=== PATIENT | male | born 1945 | race Caucasian/White ===

== ENCOUNTER 2024-01-08 13:36 | Emergency (ER) | payer MEDICARE, OTHER, SELFPAY ==
[2024-01-08 13:47] VITALS: BP 180/119
[2024-01-08 14:21] LABS: % Basophils 0.5 % (0-2); % Eosinophils 0.9 % (0-6); % Immature Granulocytes 0.3 % (0-0.5); % Lymphocytes 10.3 % (20.5-51.1); % Monocytes 8.6 % (1.7-9.3); % Neutrophils 79.4 % (42.2-75.2); Absolute Basophils 0.1 10^3/uL (0-0.2); Absolute Eosinophils 0.1 10^3/uL (0-0.7); Absolute Lymphocytes 1.2 10^3/uL (1.2-3.4); Absolute Neutrophils 9.3 10^3/uL (1.4-6.5); Hematocrit 42.5 % (39.0-52.0); Hemoglobin 14.9 g/dL (13.0-18.0); Mean Corp Hgb Conc. 35.1 g/dL (33.0-37.0); Mean Corpuscular Hgb 31.9 pg (27.0-31.0); Mean Platelet Volume 10.1 fL (7.4-10.4); Nucleated Red Blood Cells % 0 % (-); Platelet Count 253 10^3/uL (130-400); Red Blood Cell Count 4.67 10^6/uL (4.70-6.10); Red Cell Dist. Width 12.7 % (11.5-14.5); White Blood Cell Count 11.7 10^3/uL (4.8-10.8)
[2024-01-08 14:56] LABS: ALT (SGPT) 15 U/L (0-50); AST (SGOT) 23 U/L (17-59); Albumin 4.5 g/dl (3.5-5.0); Alkaline Phosphatase 96 U/L (38-126); Blood Urea Nitrogen 18 mg/dl (9-20); Calcium 9.2 mg/dl (8.4-10.2); Carbon Dioxide 21 mmol/L (22-30); Chloride 109 mmol/L (98-107); Glucose 168 mg/dl (70-99); Potassium 4.2 mmol/L (3.5-5.1); Sodium 137 mmol/L (135-145); Total Bilirubin 0.5 mg/dl (0.2-1.3); Total Protein 7.6 g/dl (6.3-8.2); eGFR > 60.00
--- NOTE | 2024-01-08 17:08 | ED.GENMED ---
History of Present Illness
General
Chief Complaint: Back Pain
Time Seen by Provider: 01/08/24 17:08
Travel History
Have you had any contact with someone who has COVID-19?: No
Do you have any symptoms of coronavirus? Fever > 100 degrees, chills, cough, shortness of breath, sore throat, loss of taste or smell, muscle aches, or headache?: No
History of Present Illness
History of Present Illness:
HPI: Patient presents with several weeks of back pain. 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 His pain is primarily localized to the left low back/sacral region. He has no neurologic dysfunction. He has been voiding without difficulty. He has
a history of esophageal cancer 'that is been cleared up' in 2020.
EXAM:
GENERAL: Well appearing in no distress
HEENT: Slightly dry oral mucosa with poor dentition
CARDIOVASCULAR: No murmurs, normal heart rate and rhythm, No chest wall tenderness
PULMONARY: No respiratory distress, breath sounds are clear and equal
ABDOMEN: Soft with no peritoneal signs, no tenderness
BACK: There is some mild tenderness in the left lumbar region, there is no significant midline T or L-spine tenderness
NEUROLOGIC: Excellent strength all extremities, no coordination deficits
PSYCHIATRIC: Appropriate mental status, normal insight and judgement
EXTREMITIES: Nontender, no edema, moves all extremities equally
SKIN: No rash, no lesions
ED COURSE:
5:15 PM: I initially evaluated patient
NUMBER AND COMPLEXITY OF PROBLEMS ADDRESSED AT THE ENCOUNTER
� Chronic conditions affecting care: Esophageal cancer, high blood pressure, hyperlipidemia, has had kidney stones in the past
� Acute Exacerbation and/or Progression of Chronic Illness: This is an acute problem
� Differential Diagnosis includes: Sciatica, musculoskeletal low back pain, AAA very unlikely, metastatic disease, pyelonephritis
AMOUNT AND/OR COMPLEXITY OF DATA TO BE REVIEWED AND ANALYZED
� I performed an independent evaluation of and my interpretation is:
EKG: Sinus 124, left axis deviation, nonspecific ST abnormality
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
X-rays:
Laboratory Studies: White count is slightly high at 11.7, hemoglobin normal, bicarb slightly low at 21, renal function normal, 1+ ketones with no sign of infection
Other:
� Review of other/old records: Patient had upper EUS earlier this year
� Clinical information was obtained by an independent historian:
� Prescriptions/Medications Considered but not given:
� Further testing considered but not performed:
RISK OF COMPLICATIONS AND/OR MORBIDITY OR MORTALITY OF PATIENT MANAGEMENT
� Social determinants of health affecting care: Lives at home
� Discussion with other providers: Discussed with radiologist
� Escalation of care including admission/observation vs risk of discharge considered: Given patient's age along with history of cancer will obtain CT. The patient was given Tylenol and overall appears fairly comfortable.
Past History
Past History
ED Past Medical History: HTN and Hypercholesterolemia
ED Past Surgical History: Other (Hernia repair)
Social History
Tobacco: Non-smoker
Alcohol: None
Personal:
Living: with family
Family History
Family History: Unable to obtain
Phy Exam
Physical Exam
Physical Exam:
See HPI
Course
Orders/Labs/Results
Orders:
Orders
01/08/24 13:49
Electrocardiogram (*1) Urgent
Reason for Study: Bradycardia / Tachycardia
01/08/24 13:50
EKG- Treatment ONCE
01/08/24 13:59
Complete Blood Count/With Diff Urgent
Comprehensive Metabolic Panel Urgent
01/08/24 17:13
CT Abd/pel Without Iv Or Oral Urgent
Comment:
Reason For Exam: worsening L flank pain
CT Lumbar Spine W/o Iv Contras Urgent
Comment:
Reason For Exam: low back pain h/o esophageal cancer
Acetaminophen [Tylenol] 1,000 mg PO NOW STA
01/08/24 17:22
Urinalysis Reflex To Culture Urgent
Date Specimen was Collected: 01/08/24
Time Specimen was Collected: 17:16
Abnormal Lab Results
01/08/24 01/08/24
13:59 17:22
WBC 11.7 H 10^3/uL
(4.8-10.8)
RBC 4.67 L 10^6/uL
(4.70-6.10)
MCH 31.9 H pg
(27.0-31.0)
Absolute Neuts (auto) 9.3 H 10^3/uL
(1.4-6.5)
Absolute Monos (auto) 1.0 H 10^3/uL
(0.1-0.6)
Neutrophils % 79.4 H %
(42.2-75.2)
Lymphocytes % 10.3 L %
(20.5-51.1)
Chloride 109 H mmol/L
(98-107)
Carbon Dioxide 21 L mmol/L
(22-30)
Glucose 168 H mg/dl
(70-99)
Urine Ketones 1+ A
(Negative)
01/08/24 13:59
01/08/24 13:59
Vital Signs
Initial and Last Documented VS:
Initial Vital Signs
Temp Pulse Resp BP Pulse Ox
98 F 129 16 180/119 98
01/08/24 13:47 01/08/24 13:47 01/08/24 13:47 01/08/24 13:47 01/08/24 13:47
Last Documented Vital Signs
Temp Pulse Resp BP Pulse Ox
98 F 96 19 162/97 95
01/08/24 13:47 01/08/24 17:49 01/08/24 17:49 01/08/24 17:57 01/08/24 17:49
*Critical Care Note
Total Time (30-74mins, 75-104mins- exclusive of procedures): Not Applicable
ED Attending Note
-
Portions of this chart may have been created with voice recognition software.� Occasional wrong word or��sound alike� substitutions may have occurred due to the inherent limitations of voice recognition software.
Discharge Plan
Departure
Patient Disposition: Home (Routine Discharge)
Date of Disposition: 01/08/24
Time of Disposition: 18:23
Patient with high blood pressure during this ER visit?: Yes
Discharge Problem:
Low back pain
Instructions: Low Back Pain (DC)
Prescriptions:
No Action
omeprazole [Prilosec] 20 mg Capsule,Delayed Release(Dr/Ec)
20 mg PO DAILY
Referrals:
Taco Jacobo MD [Family Provider] -
Activity Restrictions/Additional Instructions:
The cause of your back pain is unclear but CT imaging is reassuring meaning no sign of metastatic disease or broken bones. Chronic degenerative disease is noted of the low back. Tylenol is safest for pain.
Interventions
Interventions:
*Risk Screen - Suicide Last Done: 01/08/24 16:39
*Neglect/Abuse Screening Last Done: 01/08/24 16:39
ED- Fall Risk Assessment Last Done: 01/08/24 16:39
*ED COVID-19 Vaccine History Last Done: 01/08/24 13:47
*Nursing Disposition Last Done: 01/08/24 18:30
ED-Musculoskeletal Assessment Last Done: 01/08/24 16:39
Discharge Date and Time
Discharge Date/Time: 01/08/24 18:40
[2024-01-08] MEDS: TYLENOL 1000 MG PO (17:19)
[2024-01-08 17:34] LABS: Urine Albumin Trace (Neg - Trace); Urine Bilirubin Negative (Negative); Urine Character Clear (Clear); Urine Color Yellow; Urine Glucose Negative (Negative); Urine Ketone 1+ (Negative); Urine Leukocyte Negative (Negative); Urine Nitrite Negative (Negative); Urine Occult Blood Negative (Negative); Urine Urobilinogen Negative (Neg - 1+)
[2024-01-08 17:49] VITALS: BP 177/104
[2024-01-08 17:57] VITALS: BP 162/97
== END 2024-01-08 18:40 | disposition home or self-care (01) ==
LOC: EMR 13:36
PROVIDERS: Emergency Medicine; EMERGENCY PHYSICIAN Emergency Medicine; FAMILY PHYSICIAN Family Medicine
DX: M54.50 Low back pain, unspecified (principal); R10.9 Unspecified abdominal pain; I10 Essential (primary) hypertension; E78.00 Pure hypercholesterolemia, unspecified; Z85.01 Personal history of malignant neoplasm of esophagus; Z88.8 Allergy status to other drugs, medicaments and biological substances; Z87.442 Personal history of urinary calculi
CPT/HCPCS: 99284; 72131; 74176; 80053; 81003; 85025; 93005

== ENCOUNTER → 2024-02-03 07:03 | Outpatient (REF) | payer MEDICARE, OTHER, SELFPAY ==
[2024-02-03 07:53] LABS: % Basophils 0.6 % (0-2); % Eosinophils 3.3 % (0-6); % Immature Granulocytes 0.4 % (0-0.5); % Lymphocytes 11.2 % (20.5-51.1); % Monocytes 11.4 % (1.7-9.3); % Neutrophils 73.1 % (42.2-75.2); Absolute Basophils 0.1 10^3/uL (0-0.2); Absolute Eosinophils 0.3 10^3/uL (0-0.7); Absolute Neutrophils 6.6 10^3/uL (1.4-6.5); Hematocrit 40.6 % (39.0-52.0); Hemoglobin 13.5 g/dL (13.0-18.0); Mean Corp Hgb Conc. 33.3 g/dL (33.0-37.0); Mean Corpuscular Hgb 31.2 pg (27.0-31.0); Mean Corpuscular Volume 93.8 fL (80.0-94.0); Mean Platelet Volume 9.8 fL (7.4-10.4); Nucleated Red Blood Cells % 0 % (-); Platelet Count 227 10^3/uL (130-400); Red Blood Cell Count 4.33 10^6/uL (4.70-6.10)
[2024-02-03 08:34] LABS: ALT (SGPT) 14 U/L (0-50); AST (SGOT) 26 U/L (17-59); Albumin 4.2 g/dl (3.5-5.0); Alkaline Phosphatase 63 U/L (38-126); Blood Urea Nitrogen 19 mg/dl (9-20); Calcium 9.3 mg/dl (8.4-10.2); Carbon Dioxide 24 mmol/L (22-30); Chloride 107 mmol/L (98-107); Glucose 117 mg/dl (70-99); HDL Cholesterol 61 mg/dl; LDL Cholesterol, Calculated 108 mg/dl; Potassium 4.6 mmol/L (3.5-5.1); Sodium 135 mmol/L (135-145); Total Bilirubin 1.1 mg/dl (0.2-1.3); Total Cholesterol 187 mg/dl (50-199); Total Protein 7.2 g/dl (6.3-8.2); Triglyceride 90 mg/dl (10-149); Very Low Density Lipoprotein 18 mg/dl (0-30); eGFR > 60.00
== END ==
LOC: REG 07:03
PROVIDERS: ATTENDING PHYSICIAN Internal Medicine Hematology & Oncology; FAMILY PHYSICIAN Family Medicine
DX: I10 Essential (primary) hypertension (principal); R00.0 Tachycardia, unspecified; C15.5 Malignant neoplasm of lower third of esophagus; Z00.00 Encounter for general adult medical examination without abnormal findings
CPT/HCPCS: 36415; 80053; 80061; 85025

== ENCOUNTER 2024-03-14 06:12 | Day surgery (SDC) | payer MEDICARE, OTHER, SELFPAY ==
[2024-03-14 12:27] VITALS: BMI 26.5
[2024-03-14 12:28] VITALS: BMI 26.5
[2024-03-14 12:37] VITALS: BP 147/97
--- NOTE | 2024-03-14 12:46 | SUR.OPER ---
Patients HR was 102 and BP 147/97. Dr. Underwood notified. No further orders.
[2024-03-14 14:30] VITALS: BP 118/82
[2024-03-14 14:45] VITALS: BP 131/85
[2024-03-14 15:00] VITALS: BP 102/79
== END 2024-03-14 15:18 | disposition home or self-care (01) ==
LOC: GI 06:12
PROVIDERS: ATTENDING PHYSICIAN Internal Medicine Gastroenterology
DX: K22.10 Ulcer of esophagus without bleeding (principal); K22.2 Esophageal obstruction; K22.89 Other specified disease of esophagus; K86.9 Disease of pancreas, unspecified; Z85.01 Personal history of malignant neoplasm of esophagus; Z92.3 Personal history of irradiation; Z92.21 Personal history of antineoplastic chemotherapy
CPT/HCPCS: 43259; 43239; 88305; 88312; 88342

== ENCOUNTER → 2024-08-03 07:34 | Outpatient (REF) | payer MEDICARE, OTHER, SELFPAY ==
[2024-08-03 08:14] LABS: % Basophils 0.7 % (0-2); % Eosinophils 3.4 % (0-6); % Immature Granulocytes 0.4 % (0-0.5); % Lymphocytes 15.5 % (20.5-51.1); Absolute Basophils 0.1 10^3/uL (0-0.2); Absolute Eosinophils 0.3 10^3/uL (0-0.7); Absolute Lymphocytes 1.2 10^3/uL (1.2-3.4); Absolute Monocytes 0.8 10^3/uL (0.1-0.6); Absolute Neutrophils 5.2 10^3/uL (1.4-6.5); Hematocrit 40.7 % (39.0-52.0); Hemoglobin 13.9 g/dL (13.0-18.0); Mean Corp Hgb Conc. 34.2 g/dL (33.0-37.0); Mean Corpuscular Volume 93.6 fL (80.0-94.0); Mean Platelet Volume 9.9 fL (7.4-10.4); Nucleated Red Blood Cells % 0 % (-); Platelet Count 227 10^3/uL (130-400); Red Blood Cell Count 4.35 10^6/uL (4.70-6.10); Red Cell Dist. Width 12.8 % (11.5-14.5); White Blood Cell Count 7.5 10^3/uL (4.8-10.8)
[2024-08-03 08:42] LABS: ALT (SGPT) 13 U/L (0-50); AST (SGOT) 19 U/L (17-59); Albumin 4.4 g/dl (3.5-5.0); Alkaline Phosphatase 73 U/L (38-126); Blood Urea Nitrogen 15 mg/dl (9-20); Calcium 9.5 mg/dl (8.4-10.2); Carbon Dioxide 25 mmol/L (22-30); Chloride 104 mmol/L (98-107); Glucose 134 mg/dl (70-99); Potassium 4.4 mmol/L (3.5-5.1); Sodium 140 mmol/L (135-145); Total Bilirubin 1.1 mg/dl (0.2-1.3); eGFR > 60.00
== END ==
LOC: REG 07:34
PROVIDERS: ATTENDING PHYSICIAN Internal Medicine Hematology & Oncology; FAMILY PHYSICIAN Family Medicine
DX: C15.5 Malignant neoplasm of lower third of esophagus (principal)
CPT/HCPCS: 36415; 80053; 85025

== ENCOUNTER → 2024-08-12 13:30 | Outpatient (REF) | payer MEDICARE, OTHER, SELFPAY | LOC: RAD 13:30 | PROVIDERS: ATTENDING PHYSICIAN Internal Medicine Hematology & Oncology; FAMILY PHYSICIAN Family Medicine | DX: C15.5 Malignant neoplasm of lower third of esophagus (principal) | CPT/HCPCS: 71260; 74177; Q9967 ==

== ENCOUNTER 2024-08-12 14:12 | Emergency (ER) | payer MEDICARE, OTHER, SELFPAY ==
[2024-08-12 14:22] VITALS: BP 190/102
[2024-08-12 14:55] LABS: % Basophils 0.6 % (0-2); % Eosinophils 2.6 % (0-6); % Immature Granulocytes 0.3 % (0-0.5); % Lymphocytes 12.2 % (20.5-51.1); % Monocytes 8.4 % (1.7-9.3); % Neutrophils 75.9 % (42.2-75.2); Absolute Basophils 0.1 10^3/uL (0-0.2); Absolute Eosinophils 0.3 10^3/uL (0-0.7); Absolute Lymphocytes 1.2 10^3/uL (1.2-3.4); Absolute Monocytes 0.8 10^3/uL (0.1-0.6); Absolute Neutrophils 7.5 10^3/uL (1.4-6.5); Hematocrit 38.7 % (39.0-52.0); Hemoglobin 13.3 g/dL (13.0-18.0); Mean Corp Hgb Conc. 34.4 g/dL (33.0-37.0); Mean Corpuscular Hgb 31.1 pg (27.0-31.0); Mean Corpuscular Volume 90.4 fL (80.0-94.0); Mean Platelet Volume 9.8 fL (7.4-10.4); Nucleated Red Blood Cells % 0 % (-); Platelet Count 259 10^3/uL (130-400); Red Blood Cell Count 4.28 10^6/uL (4.70-6.10); White Blood Cell Count 9.9 10^3/uL (4.8-10.8)
[2024-08-12 15:12] LABS: ALT (SGPT) 13 U/L (0-50); AST (SGOT) 19 U/L (17-59); Albumin 4.5 g/dl (3.5-5.0); Alkaline Phosphatase 82 U/L (38-126); Blood Urea Nitrogen 16 mg/dl (9-20); Calcium 9.4 mg/dl (8.4-10.2); Carbon Dioxide 23 mmol/L (22-30); Chloride 102 mmol/L (98-107); Glucose 116 mg/dl (70-99); Potassium 4.3 mmol/L (3.5-5.1); Sodium 138 mmol/L (135-145); Total Bilirubin 0.6 mg/dl (0.2-1.3); Total Protein 7.2 g/dl (6.3-8.2); eGFR > 60.00
[2024-08-12 15:21] LABS: Troponin I < 0.012 ng/ml
[2024-08-12 18:25] VITALS: BP 168/94
[2024-08-12 19:26] VITALS: BP 181/84
[2024-08-12 19:34] VITALS: BMI 27.0
--- NOTE | 2024-08-12 19:53 | ED.GENMED ---
History of Present Illness
General
Chief Complaint: Dizziness
Time Seen by Provider: 08/12/24 19:52
History of Present Illness
History of Present Illness:
TIME OF INITIAL ENCOUNTER: 7:50 PM
HPI: The patient presents with lightheadedness and dizziness over the past 7 days. He feels well-hydrated and has been drinking fluids without any difficulty. He has had no diarrhea. He has had no chest pain. He states that his symptoms of
dizziness worsen when he changes position of his head. He has had no headaches.
EXAM:
GENERAL: Well appearing in no distress
HEENT: Poor dentition
CARDIOVASCULAR: No murmurs, normal heart rate, regular rhythm, No chest wall tenderness
PULMONARY: No respiratory distress, breath sounds are clear and equal
ABDOMEN: Soft with no peritoneal signs, no tenderness
NEUROLOGIC: Excellent strength all extremities, no coordination deficits, normal finger-nose bilaterally
PSYCHIATRIC: Appropriate mental status, normal insight and judgement
EXTREMITIES: Nontender, no edema, moves all extremities equally
SKIN: No rash, no lesions
NUMBER AND COMPLEXITY OF PROBLEMS ADDRESSED AT THE ENCOUNTER
� Chronic conditions affecting care: High blood pressure, hyperlipidemia, skin cancer
� Acute Exacerbation and/or Progression of Chronic Illness: This is an acute problem
� Differential Diagnosis includes: Positional vertigo, highly doubt intracranial process given the normal neurologic examination and overall near resolution of his symptoms currently
AMOUNT AND/OR COMPLEXITY OF DATA TO BE REVIEWED AND ANALYZED
� I performed an independent evaluation of and my interpretation is:
EKG: Sinus 75, left axis deviation, downgoing T waves in 3 and F however the QRSs are also downgoing
CT:
X-rays:
Laboratory Studies: White count and hemoglobin normal, chemistries unremarkable, troponin undetected,
Other:
� Review of other/old records: Patient had EUS this past February, I reviewed the CT report that was performed earlier today of the chest abdomen pelvis
� Clinical information was obtained by an independent historian: I spoke to the at bedside
� Prescriptions/Medications Considered but not given:
� Further testing considered but not performed: Offered and considered neuroimaging however the patient ultimately has declined. He has a normal neurologic exam.
RISK OF COMPLICATIONS AND/OR MORBIDITY OR MORTALITY OF PATIENT MANAGEMENT
� Social determinants of health affecting care: Lives at home
� Discussion with other providers:
� Escalation of care including admission/observation vs risk of discharge considered: We talked about the risks and benefits of meclizine. He wishes to proceed with trying this medication we are giving him a one-time dose now
that he can continue tomorrow if he feels that it helps. No clear indication for admission to the hospital at this time as his symptoms are minimal and he has a normal neurologic examination with normal EKG and neurologic evaluation.
ANY OTHER UPDATES:
Past History
Past History
ED Past Medical History: HTN and Hypercholesterolemia
ED Past Surgical History: Other (Hernia repair)
Social History
Tobacco: Non-smoker
Alcohol: None
Personal:
Living: with family
Family History
Family History: Unable to obtain
Phy Exam
Physical Exam
Physical Exam:
See HPI
Course
Orders/Labs/Results
Orders:
Orders
08/12/24 14:12
Electrocardiogram (*1) Urgent
Reason for Study: Vertigo / Dizzy
EKG- Treatment ONCE
08/12/24 14:30
Complete Blood Count/With Diff Urgent
Comprehensive Metabolic Panel Urgent
Troponin I Urgent
08/12/24 20:18
Meclizine [Antivert] 12.5 mg PO NOW STA
Abnormal Lab Results
08/12/24
14:30
RBC 4.28 L 10^6/uL
(4.70-6.10)
Hct 38.7 L %
(39.0-52.0)
MCH 31.1 H pg
(27.0-31.0)
Absolute Neuts (auto) 7.5 H 10^3/uL
(1.4-6.5)
Absolute Monos (auto) 0.8 H 10^3/uL
(0.1-0.6)
Neutrophils % 75.9 H %
(42.2-75.2)
Lymphocytes % 12.2 L %
(20.5-51.1)
Glucose 116 H mg/dl
(70-99)
08/12/24 14:30
08/12/24 14:30
Vital Signs
Initial and Last Documented VS:
Initial Vital Signs
Temp Pulse Resp BP Pulse Ox
98.1 F 78 18 190/102 97
08/12/24 14:22 08/12/24 14:22 08/12/24 14:22 08/12/24 14:22 08/12/24 14:22
Last Documented Vital Signs
Temp Pulse Resp BP Pulse Ox
98.8 F 69 15 181/84 98
08/12/24 19:37 08/12/24 19:30 08/12/24 19:30 08/12/24 19:26 08/12/24 19:30
*Critical Care Note
Total Time (30-74mins, 75-104mins- exclusive of procedures): Not Applicable
ED Attending Note
-
Portions of this chart may have been created with voice recognition software.� Occasional wrong word or��sound alike� substitutions may have occurred due to the inherent limitations of voice recognition software.
Discharge Plan
Departure
Patient Disposition: Home (Routine Discharge)
Date of Disposition: 08/12/24
Time of Disposition: 20:18
Patient with high blood pressure during this ER visit?: Yes
Discharge Problem:
Dizziness
Instructions: Dizziness
Prescriptions:
New
meclizine 12.5 mg tablet
12.5 mg PO BID PRN (Reason: dizziness) Qty: 20 0RF
No Action
atenolol 50 mg Tablet
50 mg PO DAILY
Referrals:
Taco Jacobo MD [Family Provider] -
Activity Restrictions/Additional Instructions:
We have given you a dose of meclizine here�this was a low dose. If you tolerate this medication, you can start the prescription meclizine that I am sending to your pharmacy.
Interventions
Interventions:
*Risk Screen - Suicide Last Done: 08/12/24 14:22
*General Assessment Last Done: 08/12/24 14:22
*Neglect/Abuse Screening Last Done: 08/12/24 14:22
ED- Fall Risk Assessment Last Done: 08/12/24 19:34
*ED COVID-19 Vaccine History Last Done: 08/12/24 14:22
ED- Neurological Assessment Last Done: 08/12/24 19:34
ED- Cardiac Assessment Last Done: 08/12/24 19:34
Discharge Date and Time
Print Language: GRENADIAN
[2024-08-12 20:00] VITALS: BP 135/79
[2024-08-12] MEDS: ANTIVERT 12.5 MG PO (20:43)
== END 2024-08-12 20:55 | disposition home or self-care (01) ==
LOC: EMR 14:12
PROVIDERS: Physician Assistant; EMERGENCY PHYSICIAN Emergency Medicine; FAMILY PHYSICIAN Family Medicine
DX: R42 Dizziness and giddiness (principal); I10 Essential (primary) hypertension
CPT/HCPCS: 99284; 71260; 74177; 80053; 84484; 85025; 93005; Q9967

== ENCOUNTER 2024-08-20 08:57 | Emergency (ER) | payer MEDICARE, OTHER, SELFPAY ==
[2024-08-20 09:02] VITALS: BP 163/84
[2024-08-20 09:05] VITALS: BMI 22.4
--- NOTE | 2024-08-20 09:06 | ED.MUSCINJ ---
HPI-Injury
General
Chief Complaint: Fall
Source: patient
Exam Limitations: none
Time Seen by Provider: 08/20/24 08:59
History of Present Illness-Injury
Initial Injury comments:
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 He hit his head. He thinks he may have lost consciousness after hitting his head. Right
now he feels just lightheaded. No chest pain or shortness of breath. He denies neck arm or back pain. No nausea or vomiting. No other complaints. He denies any dizzy sensation. He denies any vision change
Past History
Past History
ED Past Medical History: HTN and Hypercholesterolemia
ED Past Surgical History: Other (Hernia repair)
Social History
Tobacco: Non-smoker
Alcohol: None
Personal:
Living: with family
Family History
Family History: Unable to obtain
Phy Exam
Physical Exam
Physical Exam:
General: Well-appearing male no acute respiratory distress
HEENT: Normocephalic send total of a 6 cm Y shaped laceration left posterior scalp pupils equal round react to light
Heart: Regular rate and rhythm
Lungs: Clear no wheeze
Extremities: No cyanosis
Musculoskeletal exam: Spine is nontender good range of motion all extremities
Neurologic: Alert and oriented good muscle tone no facial asymmetry or slurred speech
Injury Course
Orders/Labs/Results
Orders:
Orders
08/20/24 09:03
CT Cervical Spine W/o Iv Contr Urgent
Comment:
Reason For Exam: fall
08/20/24 09:04
Electrocardiogram (*1) Urgent
Reason for Study: Palpitations
CT Head W/o Iv Contrast Urgent
Comment:
Reason For Exam: fall
EKG- Treatment ONCE
08/20/24 09:10
Complete Blood Count/With Diff Urgent
Comprehensive Metabolic Panel Urgent
08/20/24 09:51
Orthostatic VS- Treatment ONCE
Abnormal Lab Results
08/20/24
09:10
RBC 4.28 L 10^6/uL
(4.70-6.10)
MCH 32.0 H pg
(27.0-31.0)
Absolute Neuts (auto) 7.3 H 10^3/uL
(1.4-6.5)
Absolute Lymphs (auto) 1.0 L 10^3/uL
(1.2-3.4)
Absolute Monos (auto) 0.8 H 10^3/uL
(0.1-0.6)
Neutrophils % 77.0 H %
(42.2-75.2)
Lymphocytes % 10.2 L %
(20.5-51.1)
Glucose 134 H mg/dl
(70-99)
08/20/24 09:10
08/20/24 09:10
Procedures
Laceration Closure
Left Posterior Scalp:
Status of Wound: clean
Description of Wound Edges: sharp
Preparation: cleaned with saline
Anesthesia: 1% Lidocaine with epi
Revision/Debridement: routine- no revision
Wound exploration: explored to base- no FB and no tendon involvement
Type of Closure: single layer closure and running stitch
Skin Closure Material: 4-0 prolene
Number of sutures: 10
MDM/Problems Addressed
Differential Diagnosis Includes:
Lightheadedness with a fall. Consider orthostasis versus arrhythmia versus anemia. Patient also hit his head with laceration. Consider skull fracture intracranial bleed or cervical spine injury. CT of head and cervical spine pending. Patient
placed on monitor EKG pending labs pending. Patient's wound will require closure
*Critical Care Note
Total Time (30-74mins, 75-104mins- exclusive of procedures): Not Applicable
Update Note
Update Note:
CT of head and cervical spine were reviewed by myself and radiologist both of which are negative for acute traumatic injury. The wound was irrigated copiously and closed with 4-0 Prolene sutures. Orthostatic vital signs are stable. Patient has
been on his feet without any signs of unsteadiness. I think he stable for discharge with close follow-up with family doctor. Sutures to be removed in 7 to 10 days
ED Attending Note
-
Portions of this chart may have been created with voice recognition software.� Occasional wrong word or��sound alike� substitutions may have occurred due to the inherent limitations of voice recognition software.
Discharge Plan
Departure
Patient Disposition: Home (Routine Discharge)
Date of Disposition: 08/20/24
Time of Disposition: 10:46
Patient with high blood pressure during this ER visit?: No
Discharge Problem:
Fall, Laceration
Instructions: Laceration Repair With Stitches (DC)
Prescriptions:
No Action
atenolol 50 mg Tablet
50 mg PO DAILY
meclizine 12.5 mg tablet
12.5 mg PO BID PRN (Reason: dizziness) Qty: 20 0RF
Referrals:
Taco Jacobo MD [Family Provider] -
Activity Restrictions/Additional Instructions:
Please stay hydrated. Have sutures removed in 7 to 10 days. You may ice to the sore spot. Take Tylenol if needed for pain. Follow-up with your family doctor return here if worse otherwise.
Interventions
Interventions:
*Risk Screen - Suicide Last Done: 08/20/24 09:06
*General Assessment Last Done: 08/20/24 09:06
*Neglect/Abuse Screening Last Done: 08/20/24 09:06
*ED COVID-19 Vaccine History Last Done: 08/20/24 09:06
ED-Musculoskeletal Assessment Last Done: 08/20/24 09:06
ED- Neurological Assessment Last Done: 08/20/24 09:06
ED-Skin Assessment Last Done: 08/20/24 09:06
Discharge Date and Time
Print Language: MALTESE
[2024-08-20 09:26] LABS: % Basophils 0.5 % (0-2); % Eosinophils 3.2 % (0-6); % Immature Granulocytes 0.3 % (0-0.5); % Lymphocytes 10.2 % (20.5-51.1); % Monocytes 8.8 % (1.7-9.3); Absolute Basophils 0.1 10^3/uL (0-0.2); Absolute Eosinophils 0.3 10^3/uL (0-0.7); Absolute Monocytes 0.8 10^3/uL (0.1-0.6); Absolute Neutrophils 7.3 10^3/uL (1.4-6.5); Hematocrit 40.1 % (39.0-52.0); Hemoglobin 13.7 g/dL (13.0-18.0); Mean Corp Hgb Conc. 34.2 g/dL (33.0-37.0); Mean Corpuscular Volume 93.7 fL (80.0-94.0); Mean Platelet Volume 9.8 fL (7.4-10.4); Nucleated Red Blood Cells % 0 % (-); Platelet Count 255 10^3/uL (130-400); Red Blood Cell Count 4.28 10^6/uL (4.70-6.10); Red Cell Dist. Width 12.7 % (11.5-14.5); White Blood Cell Count 9.5 10^3/uL (4.8-10.8)
[2024-08-20 09:31] LABS: ALT (SGPT) 15 U/L (0-50); AST (SGOT) 20 U/L (17-59); Albumin 4.4 g/dl (3.5-5.0); Alkaline Phosphatase 75 U/L (38-126); Blood Urea Nitrogen 18 mg/dl (9-20); Calcium 9.6 mg/dl (8.4-10.2); Carbon Dioxide 25 mmol/L (22-30); Chloride 103 mmol/L (98-107); Estimated Creatinine Clearance 59 ml/min; Glucose 134 mg/dl (70-99); Potassium 4.6 mmol/L (3.5-5.1); Sodium 139 mmol/L (135-145); Total Bilirubin 0.6 mg/dl (0.2-1.3); Total Protein 7.2 g/dl (6.3-8.2); eGFR > 60.00
[2024-08-20 09:51] VITALS: BP 144/89; BP 151/87; BP 171/93; PULSE 75; PULSE 76; PULSE 80
== END 2024-08-20 13:32 | disposition home or self-care (01) ==
LOC: EMR 08:57
PROVIDERS: Physician Assistant; EMERGENCY PHYSICIAN Emergency Medicine; FAMILY PHYSICIAN Family Medicine
DX: S01.01XA Laceration without foreign body of scalp, initial encounter (principal); W19.XXXA Unspecified fall, initial encounter; R42 Dizziness and giddiness; I10 Essential (primary) hypertension; E78.00 Pure hypercholesterolemia, unspecified
CPT/HCPCS: 99284; 12001; 70450; 72125; 80053; 85025; 93005

== ENCOUNTER 2024-08-27 21:49 | Inpatient (IN) | payer MEDICARE, OTHER, SELFPAY ==
[2024-08-27 19:23] VITALS: BP 183/65
[2024-08-27 19:43] VITALS: BMI 27.5
[2024-08-27 19:45] VITALS: BP 160/85
[2024-08-27 19:47] LABS: % Basophils 0.5 % (0-2); % Eosinophils 3.1 % (0-6); % Immature Granulocytes 0.4 % (0-0.5); % Lymphocytes 12.9 % (20.5-51.1); % Monocytes 9.1 % (1.7-9.3); Absolute Basophils 0.1 10^3/uL (0-0.2); Absolute Eosinophils 0.3 10^3/uL (0-0.7); Absolute Lymphocytes 1.2 10^3/uL (1.2-3.4); Absolute Monocytes 0.9 10^3/uL (0.1-0.6); Hematocrit 39.2 % (39.0-52.0); Hemoglobin 13.3 g/dL (13.0-18.0); Mean Corp Hgb Conc. 33.9 g/dL (33.0-37.0); Mean Corpuscular Hgb 31.9 pg (27.0-31.0); Mean Platelet Volume 9.5 fL (7.4-10.4); Nucleated Red Blood Cells % 0 % (-); Platelet Count 236 10^3/uL (130-400); Red Blood Cell Count 4.17 10^6/uL (4.70-6.10); Red Cell Dist. Width 12.6 % (11.5-14.5); White Blood Cell Count 9.5 10^3/uL (4.8-10.8)
[2024-08-27] MEDS: ATROPINE 0.1 MG/ML SYRINGE 1 MG IV (19:59)
[2024-08-27 20:00] VITALS: BP 151/80
[2024-08-27 20:05] LABS: ALT (SGPT) 14 U/L (0-50); AST (SGOT) 18 U/L (17-59); Albumin 4.2 g/dl (3.5-5.0); Alkaline Phosphatase 75 U/L (38-126); Blood Urea Nitrogen 18 mg/dl (9-20); Calcium 9.3 mg/dl (8.4-10.2); Carbon Dioxide 26 mmol/L (22-30); Chloride 103 mmol/L (98-107); Estimated Creatinine Clearance 51 ml/min; Glucose 225 mg/dl (70-99); Potassium 4.1 mmol/L (3.5-5.1); Sodium 139 mmol/L (135-145); Total Bilirubin 0.4 mg/dl (0.2-1.3); Total Protein 6.9 g/dl (6.3-8.2); eGFR > 60.00
[2024-08-27 20:16] LABS: Troponin I 0.028 ng/ml
--- NOTE | 2024-08-27 20:16 | ED.GENMED ---
History of Present Illness
General
Chief Complaint: Heart Rate Problem
Source: patient and spouse
Time Seen by Provider: 08/27/24 19:45
History of Present Illness
History of Present Illness:
79-year-old male presents to the emergency room with his for evaluation after suffering a syncopal episode at home. Patient was in the bathroom when he collapsed and evidently struck his head. He called for his who brought him to the ""hospital. Patient has had several similar episodes over the past week or so. He was most recently here in the emergency room 3 days ago. He had a head laceration sutured. Patient was also in the emergency room on 08/12 this with a negative
workup. Patient was seen by his primary care doctor who referred him for both cardiology and neurology outpatient follow-up. Patient's called 911 after the syncopal episode at home. He had another syncopal episode in triage. Patient is
unable to describe what happens in detail other than the briefly feels dizzy and then is waking up after having passed out. He does take atenolol 50 mg but has been on this dose for quite some time. He does not drink or smoke.
Past History
Past History
ED Past Medical History: HTN and Hypercholesterolemia
ED Past Surgical History: Other (Hernia repair)
Social History
Tobacco: Non-smoker
Alcohol: None
Personal:
Living: with family
Family History
Family History: Unable to obtain
Phy Exam
Physical Exam
Physical Exam:
General: Awake, Alert, Oriented X3. Appears stated age
Vitals: unremarkable
Head: Atraumatic
Eyes: Pupils equal, EOMI
Throat: Airway intact, no exudates, poor dentition
Neck: Trachea midline
Lungs: Clear and equal b/l
Heart: Regular rate, no murmurs
Abd: Soft, Nontender, No pulsatile mass
Neuro: Nonfocal
Skin: Warm, dry, no rash
Extremities: pulses equal b/l, no edema
Course
Orders/Labs/Results
Orders:
Orders
08/27/24 Dinner
Cholesterol Lowering
Cholesterol Lowering: Sodium, 2 Gram
08/27/24 19:28
Electrocardiogram (*1) Urgent
Reason for Study: Chest Pain
EKG- Treatment ONCE
08/27/24 19:39
Complete Blood Count/With Diff Urgent
Comprehensive Metabolic Panel Urgent
Troponin I Urgent
08/27/24 19:56
Atropine Sulfate [Atropine 0.1 mg/ml Syringe] 1 mg .ROUTE .STK-MED ONE
08/27/24 19:59
Atropine Sulfate [Atropine 0.1 mg/ml Syringe] 1 mg IV NOW STA
08/27/24 20:06
CT Cervical Spine W/o Iv Contr Urgent
Comment:
Reason For Exam: fall, head injury
CT Head W/o Iv Contrast Stat
Comment:
Reason For Exam: head injury
08/27/24 20:13
Atropine Sulfate [Atropine 0.1 mg/ml Syringe] 1 mg .ROUTE .STK-MED ONE
08/27/24 20:42
Lidocaine HCl/Pf [Xylocaine-Mpf 1% Vial] 50 mg .ROUTE .STK-MED ONE
Lidocaine HCl/Pf [Xylocaine-Mpf 1% Vial] 50 mg .ROUTE .STK-MED ONE
08/27/24 20:43
Fentanyl Citrate/Pf [Sublimaze] 100 mcg .ROUTE .STK-MED ONE
Midazolam HCl [Versed] 2 mg .ROUTE .STK-MED ONE
08/27/24 21:21
Admit/Transfer Patient As Directed
Co-Sign Provider:
Level of Care: Inpatient admission
Assign to:: IVU
Physician / Group: Hospitalist
Diagnosis: symptomatic bradycardia
Reason for Hospitalization: symptomatic bradycardia
Expected length of stay greater than two midnights?: Yes
ELOS- Estimated Length of Stay in days: 2
I certify the patient meets the requirements for IP care: Yes
08/27/24 21:22
Code Status As Directed
Resuscitation Status: Full Code
PRN Pain Medication Management As Directed
May give lesser potent ordered pain med per pt: Yes
preference::
Protocol:: Medication orders for pain may be administered in a
manner that supports deferring to patient preference
when the pt is:
- Requesting an ordered lesser potent pain medication.
Least to most potent pain medications are defined
as: acetaminophen < NSAID < tramadol < opioids
(morphine, oxycodone, hydromorphone).
- Requesting a lesser dose of the same medication IF
ORDERED.
- Requesting a less intrusive route of administration
if both routes are prescribed by the provider (PO <
IV).
08/27/24 21:51
Electrocardiogram (*1) Q6H
Reason for Study: Chest Pain
Comment: at admission and Q3H for total of 3, to be done with each troponin
Acetaminophen [Tylenol] 650 mg PO Q4HPRN PRN
HydrALAZINE [Apresoline] 10 mg IV Q4HPRN PRN
Mag Hydrox/Al Hydrox/Simeth [Maalox] 30 ml PO Q4HPRN PRN
Nitroglycerin Sublingual [Nitrostat (Sublingual)] 0.4 mg SL [id number] PRN
08/27/24 21:51
Echo 2D MMode Color/Doppler Routine
Reason for Study: chest pain
CARDIOLOGY CONSULT Routine
Consulting Provider: Pradip Díaz
Was physician already notified: Yes
Reason for consult: symptomatic bradycardia, s/p temp ppm
Activity As Directed
Activity Level: With Assistance
INT (Intravenous Needle Therapy) As Directed
Comment: maintain peripheral IV access
Intake/ Output As Directed
Frequency: Per unit guidelines
Vital Signs As Directed
Frequency: q4h
Weight As Directed
Frequency: Once
O2 Therapy [RESP] Routine
Nasal Cannula Liter Flow: 2 LPM
Titrate/Wean O2 to maintain O2 sat greater than (%): 90
Special Instructions: 2 liters/minute as needed for pulse oximetry less than 90%
DX Deep Vein Thrombosis Video Routine
08/27/24 22:00
Flush (0.9% Sodium Chloride) [Flush (Nss)] See Dose Instructions IV PER PROTOCOL
08/27/24 23:30
Troponin I Q6H
Comment: at admit & Q3H for 3 total including ED draws, obtain ECG with each level
08/28/24 03:51
Electrocardiogram (*1) Q6H
Reason for Study: Chest Pain
Comment: at admission and Q3H for total of 3, to be done with each troponin
08/28/24 05:30
Troponin I Q6H
Comment: at admit & Q3H for 3 total including ED draws, obtain ECG with each level
08/28/24 06:00
Basic Metabolic Panel IN AM
Cardiovascular Evaluation IN AM
Complete Blood Count/No Diff IN AM
Glycohemoglobin (HgbA1c) IN AM
Lyme Progressive IN AM
TSH Reflex To Free T4 IN AM
08/28/24 09:51
Electrocardiogram (*1) Q6H
Reason for Study: Chest Pain
Comment: at admission and Q3H for total of 3, to be done with each troponin
08/28/24 18:00
Enoxaparin Sodium [Lovenox] 40 mg SC QPM
Abnormal Lab Results
08/27/24
19:39
RBC 4.17 L 10^6/uL
(4.70-6.10)
MCH 31.9 H pg
(27.0-31.0)
Absolute Neuts (auto) 7.0 H 10^3/uL
(1.4-6.5)
Absolute Monos (auto) 0.9 H 10^3/uL
(0.1-0.6)
Lymphocytes % 12.9 L %
(20.5-51.1)
Glucose 225 H mg/dl
(70-99)
08/27/24 19:39
08/27/24 19:39
Vital Signs
Initial and Last Documented VS:
Initial Vital Signs
Temp Pulse Resp BP Pulse Ox
99.5 F 69 18 183/65 98
08/27/24 19:23 08/27/24 19:23 08/27/24 19:23 08/27/24 19:23 08/27/24 19:23
Last Documented Vital Signs
Temp Pulse Resp BP Pulse Ox
98.8 F 88 20 133/86 97
08/27/24 22:00 08/27/24 22:00 08/27/24 22:00 08/27/24 22:00 08/27/24 22:00
MDM/Problems Addressed
Differential Diagnosis Includes:
Intermittent heart block, atrial fibrillation, ventricular tachycardia
MDM/Problems Addressed:
Patient brought immediately to a treatment room after passing out in triage. He was placed on the monitor and was quickly observed to have a relatively short pause. This was followed by an extremely long, greater than 32nd period of complete heart
block. There were P waves without any corresponding QRS complexes. Patient did become unresponsive. We were getting ready to start compressions when he regained a pulse. Patient given a milligram of atropine. Patient placed on the external
pacer and a call was immediately made to cardiology. Dr. Díaz is on-call for cardiology. After discussing the case he recommended I speak directly to the client solutions director on-call who is Dr. Calzada. Dr. Calzada agreed to immediately
come in and place a temporary pacemaker. Patient had further pauses while waiting a trip to the [facility] however they were not as pronounced. Patient was taken to the [facility] in stable condition
Chronic conditions affecting care: HTN
*Pulse Oximetry
Patient hypoxic: no
*EKG
Interpreted by ED Provider?: Yes
Interpretation: abnormal
Heart Rate: 101
Rate: tachycardiac
Rhythm: sinus
Interval: first degree heart block
QRS Pattern: normal QRS
Ischemia: non-specific ST changes
*Press [employer] Interpretation
Rate: tachycardiac
Interpretation: abnormal
Rhythm: sinus tachycardia
*Critical Care Note
Total Time (30-74mins, 75-104mins- exclusive of procedures): 40 m
comment:
Critical care statement: A total of 40 minutes of critical care time was provided for this patient. This includes management of unstable vital signs, evaluation of the patient at bedside, reviewing the patient's pertinent medical records, discussion
with consultants, review of old EKGs and review of pertinent medical records. This time with separate from time utilized to perform the aforementioned documented procedures
Data Reviewed
Review of Other/Old Records Reveals: Other (Previous emergency department records, previous EKG,)
Patient Management
Discussion with other providers: Hospitalist and Electronic Service Technician (Dr. Díaz, Dr. Moreno)
ED Attending Note
-
Portions of this chart may have been created with voice recognition software.� Occasional wrong word or��sound alike� substitutions may have occurred due to the inherent limitations of voice recognition software.
Discharge Plan
Departure
Patient Disposition: Admit
Date of Disposition: 08/27/24
Time of Disposition: 20:17
Admit to: laboratory technician
Presentation/result/management discussed w/ accepting MD/DO: Hospitalist
Condition: Critical
Discharge Problem:
Heart block AV complete, Syncope, Head injury
Interventions
Interventions:
*Risk Screen - Suicide Last Done: 08/27/24 19:27
*General Assessment Last Done: 08/27/24 19:27
*Neglect/Abuse Screening Last Done: 08/27/24 19:27
ED- Fall Risk Assessment Last Done: 08/27/24 19:43
*ED COVID-19 Vaccine History Last Done: 08/27/24 19:28
*Nursing Disposition Last Done: 08/27/24 21:13
ED- Cardiac Assessment Last Done: 08/27/24 19:43
ED-Musculoskeletal Assessment Last Done: 08/27/24 19:43
ED- Neurological Assessment Last Done: 08/27/24 19:43
ED- Pulmonary Assessment Last Done: 08/27/24 19:43
ED-Skin Assessment Last Done: 08/27/24 19:43
Discharge Date and Time
Discharge Date/Time: 08/27/24 21:14
[2024-08-27 20:33] VITALS: BP 151/91
--- NOTE | 2024-08-27 21:00 | ITS.CL.PN ---
Finished Garment Inspector - Procedure Note
Procedure
Procedure Note:
CARDIAC CATHETERIZATION REPORT
Date of Procedure: 08/27/24
Referring: Dr. Kenn Díaz
INDICATION: complete heart block
PROCEDURE:
1. Temporary venous pacemaker insertion
ACCESS:
6 Fr right internal jugular vein
PROCEDURE DESCRIPTION
Ultrasound guidance was used to gain access to the right internal jugular vein after which the 6 Fr sheath was placed. The temporary venous pacemaker was inserted via the sheath and advanced to RV apex under fluoroscopic guidance. Capture was
verified down to a threshold of 0.6 mA, after which the pacemaker was set to VVI at 60 bpm (output 10 mA) and secured in place. The patient tolerated the procedure well without complication.
CONCLUSIONS
1. Successful insertion of temporary venous pacemaker via the right internal jugular vein with appropriate capture verified.
RECOMMENDATIONS:
1. Close monitoring of TVP function with daily threshold testing.
2. Permanent pacemaker will be needed.
Signed: Dominik Moreno MD, PhD
--- NOTE | 2024-08-27 21:29 | HPS.HSE ---
Family Physician
-
Family Physician: Taco Jacobo
Chief Complaint
-
Recurrent syncopal episode
History of Present Illness
79-year-old with past medical history of hypertension hyperlipidemia and esophageal hernia s/p surgery presenting to the emergency department recurrent syncopal episode.
Patient reports recurrent episodes of feeling dizzy and lightheaded and transient episodes of unresponsiveness over the last 2 days. He remembers 4 episodes of such. He denies any history prior to this recent episodes. He denies having any chest
pain. He denied any nausea or vomiting or diaphoresis. He was actually seen in the emergency department 3 days ago for a fall and had a head laceration status post the alondra. Similar episode on 1014 with negative workup.
Patient's called 911 after the syncopal episode at home. Upon arrival in triage patient had a witnessed syncopal episode. Patient is unable to describe what happens in detail other than the briefly feels dizzy and then is waking up after
having passed out. He takes atenolol 50 mg but has been on this dose for quite some time. He does not drink or smoke. Denies any rash. Denies heat or cold intolerance. Denies any urinary symptoms.
While in the ED he was noted to have approximately 32nd pause. Interventional cardiology was consulted. Patient was taken to the [facility] and had a temporary pacemaker placed. He had a set backup rate of 60 and is currently sinus when I saw him.
Blood pressure was 130/60, he was afebrile and satting 99% room air. ECG shows a first-degree AV block and is otherwise nonischemic, his troponin was 0.2. CBC was unremarkable. Chemistries were all within normal limits with normal potassium. CT
of the head showed no acute intracranial process.
Medical History
Past Medical History
Past Medical History: Reports HTN
Past Surgical History: Reports Other
Social History
Tobacco: Former Smoker
Alcohol: None
Drug: None
Personal:
Living: With Family
Employment: Employed
Family History
Family History: Not pertinent
Allergies / Home Medications
Allergies reflects when Allergies were last updated in [facility].
Home Medications with original date entered in [facility]
Allergy/Medication List:
Allergies
Allergy/AdvReac Type Severity Reaction Status Date / Time
No Known Allergies Allergy Unverified 08/12/24 14:25
Home Medications
atenolol 50 mg tablet 50 mg PO DAILY 03/14/24
Nature Vitamin 1 tab PO QPM 08/27/24
ascorbic acid (vitamin C) 500 mg tablet (Vitamin C) 500 mg PO QPM 08/27/24
cyanocobalamin (vitamin B-12) 1,000 mcg tablet 1,000 mcg PO QPM 08/27/24
vitamin E 268 mg (400 unit) capsule 268 mg PO QPM 08/27/24
Review of Systems
-
History Source: Patient and Physician
Constitutional: Reports No Symptoms
EENT: Reports No Symptoms
Respiratory: Reports No Symptoms
Cardiac: Reports No Symptoms
Abdomen/GI: Reports No Symptoms
: Reports No Symptoms
Musculoskeletal: Reports No Symptoms
Skin: Reports No Symptoms
Neurological: Reports Dizzy and Weakness
Endocrine: Reports No Symptoms
Hematologic/Lymphatic: Reports No Symptoms
Psych: Reports No Symptoms
Physical Exam
Vital Signs
Vital Signs
Temp Pulse Resp BP Pulse Ox
99.5 F 93 24 151/91 96
08/27/24 19:23 08/27/24 20:45 08/27/24 20:45 08/27/24 20:33 08/27/24 20:45
Physical Exam
General: No Apparent Distress, Comfortable and Conversant
HEENT: NormoCephalic, Anicteric, Moist mucous membranes, PERRLA and No Ptosis
Respiratory: Clear
Cardiac: S1/S2, Regular Rhythm and Other (Right internal jugular catheter site clean dry and intact)
Breast: Deferred by me
GI: Soft, Non Tender, Non Distended and Normal Bowel Sounds
Rectal: Deferred by Provider
Genito-urinary: Deferred by me
Musculoskeletal: No Clubbing, No Cyanosis and No Edema
Skin: Warm
Neuro: AO x 3
Hematologic/Lymphatic: No Lymphadenopathy
Psych: Calm
Laboratory Results
-
08/27/24 19:39
08/27/24 19:39
Laboratory Results
Total Bilirubin 0.4 mg/dl (0.2-1.3) 08/27/24 19:39
AST 18 U/L (17-59) 08/27/24 19:39
ALT 14 U/L (0-50) 08/27/24 19:39
Alkaline Phosphatase 75 U/L (38-126) 08/27/24 19:39
Troponin I 0.028 ng/ml 08/27/24 19:39
Data Reviewed
-
CT Scan: Report Reviewed by me
Medical Tests (Nuc Med, Echo, EKG etc): Image Personally Visualized and interpreted
Lab Data: Labs Reviewed by me
Old Records: Reviewed
Impression/Plan
-
IMPRESSION:
Patient with history of hypertension on atenolol who comes to the emergency department with recurrent syncopal episodes over the last week and found to have significant sinus pause while in the ED and also. Of complete heart block. He had weakness
syncopal episode that correlates with the abnormal rhythm while in the ED. ECG shows a 1st degree AV block and no ischemic changes. Troponin is negative. He is status post temporary pacemaker with a backup rate set at 60. Labs unremarkable.
Patient is currently asymptomatic, a&ox3 and is at baseline. 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
PLAN:
1. Symptomatic bradycardia with intermittent complete block and ventricular excitation.
- admit to cv-icu
- s/p temp ppm as above,
- holding atenolol
- check tsh, lyme serology
- trend trop, check lipid panel
- echo in am
- cardiology consult and plan for ppm
2. HTN - currently well controlled
- given pacemaker may need to remain on beta blockade to avoid rebound but holding atenolol for now
- consider arb
DVT PPX - lovenox sq
Code Status - Full code
[2024-08-27 22:00] VITALS: BP 133/86
[2024-08-27 22:06] VITALS: BMI 26.7
[2024-08-27 23:00] VITALS: BP 115/74
--- NOTE | 2024-08-27 23:00 | PTCARENOTE ---
Pt admitted to room 2265 from the cath room s/p transvenous temporary pacing wire placement via right IJ. Pt AAOx3. CHANG. Pt SR on the tele monitor. No pacing noted at this time. BP 133/86. Palpable pulses throughout. No edema noted. Pt on RA. POX
95%. Lung sounds clear to auscultation. Abdomen soft/nontender. +BS. Pt states that he voided while in the ED. Pt instructed to ring call le overnight if he needs to void. Right IJ cordis w/ temporary pacing wire C/D/I. Transvenous tem pacer set
to VVI 60/10/2. Pt w/ hx of recurrent syncopal episodes. Abrasion on right knee and left elbow were present upon arrival to CVICU and covered with silicone boarder foams. 6 alondra located on the back of the pt's head are intact and open to air. Pt
states he recently got sutures removed from the left side of his head that were a result of a fall he had last week. 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 Right PIV x2 C/D/I and flush w/o issue. Pt oriented to room. All questions
answered. See worklist for full nursing assessment and interventions. Call le within reach.
[2024-08-27] MEDS: TYLENOL 650 MG PO (23:24)
[2024-08-28] VITALS (29 sets, daily range): BP systolic 84–162; BP diastolic 61–93; BMI 26.9
[2024-08-28 00:21] LABS: Troponin I 0.059 ng/ml
--- NOTE | 2024-08-28 04:27 | PTCARENOTE ---
Pt reassessed. No change in assessment. Pt SR w/ 1st degree AV block. HR 60-70s. Occasional pacer spikes noted. Temporary pacer settings unchanged. Right IJ w/ transvenous temp pacer intact. Pt remains on RA. POX 95-98%. Pt able to void in the
urinal w/ assistance. EKG obtained. Pt repositioned in bed. No c/o pain at this time. Call le within reach.
[2024-08-28 05:14] LABS: Hematocrit 37.7 % (39.0-52.0); Hemoglobin 13.1 g/dL (13.0-18.0); Mean Corp Hgb Conc. 34.7 g/dL (33.0-37.0); Mean Corpuscular Hgb 32.3 pg (27.0-31.0); Mean Corpuscular Volume 93.1 fL (80.0-94.0); Mean Platelet Volume 9.5 fL (7.4-10.4); Platelet Count 201 10^3/uL (130-400); Red Blood Cell Count 4.05 10^6/uL (4.70-6.10); Red Cell Dist. Width 12.7 % (11.5-14.5); White Blood Cell Count 10.3 10^3/uL (4.8-10.8)
[2024-08-28 05:38] LABS: Blood Urea Nitrogen 18 mg/dl (9-20); Calcium 9.1 mg/dl (8.4-10.2); Carbon Dioxide 24 mmol/L (22-30); Chloride 104 mmol/L (98-107); Estimated Creatinine Clearance 58 ml/min; Glucose 122 mg/dl (70-99); HDL Cholesterol 44 mg/dl; LDL Cholesterol, Calculated 93 mg/dl; Potassium 4.5 mmol/L (3.5-5.1); Sodium 141 mmol/L (135-145); Total Cholesterol 157 mg/dl (50-199); Triglyceride 104 mg/dl (10-149); Very Low Density Lipoprotein 20 mg/dl (0-30); eGFR > 60.00
[2024-08-28 06:06] LABS: TSH Reflex To Free T4 2.21 uIU/ml (0.47-4.68); Troponin I 0.098 ng/ml
--- NOTE | 2024-08-28 07:56 | W.PN.HOSP.TC ---
Today's Communication/Plan
-
see plan
Assessment / Plan
Assessment / Plan
79-year-old with past medical history of hypertension hyperlipidemia and esophageal hernia s/p surgery presenting to the emergency department recurrent syncopal episode.
While in the ED he was noted to have approximately 32nd pause s/p urgent temporary pacer placement.
1. Symptomatic bradycardia with intermittent complete block and ventricular excitation.
- s/p temp ppm
- admitted to cv-icu
- holding atenolol
- check tsh, lyme serology
- trend trop, check lipid panel
- echo in am
- cardiology consult and plan for ppm - per Dr. Díaz - OK to eat, not happening today
2. HTN - currently well controlled
--hold Atenolol
DVT PPX - lovenox sq
Code Status - Full code
Anticipated Discharge: 24 - 48 hours
Subjective/Interval History
-
Date of Service: August 28, 2024
no new complaints
no chest pain
wants to eat breakfast
Objective Data
-
Labs:
Laboratory Results
08/27/24 08/28/24
19:39 04:58
WBC 10.3
Hgb 13.1
Hct 37.7 L
Plt Count 201
Sodium 139 141
Potassium 4.1 4.5
Chloride 103 104
Carbon Dioxide 26 24
BUN 18 18
Creatinine 0.9 0.8
Glucose 225 H 122 H
Calcium 9.3 9.1
Total Bilirubin 0.4
AST 18
ALT 14
Alkaline Phosphatase 75
Vital Signs:
Vital Signs
Temp Pulse Resp BP Pulse Ox
99.1 F 71 22 144/74 97
08/28/24 04:00 08/28/24 07:15 08/28/24 07:15 08/28/24 07:00 08/28/24 07:15
I&O
08/27/24 08/28/24 08/29/24
06:59 06:59 06:59
Intake Total 90 / 90
Output Total 250 / 250
Balance -160 / -160
Review of Systems
-
History Source: Patient
All other systems: Reviewed and negative
Physical Exam
-
General: No Apparent Distress
HEENT: PERRLA and Other (temporary pacer in place )
Respiratory: Clear to Auscultation; Negative Wheezes
Cardiac: Regular Rhythm and S1/S2
GI: Soft and Nontender
Musculoskeletal: No Edema
Skin: Warm and Dry; Negative Rash
Neuro: AO x 3
Psych: Calm
Data Reviewed
-
Diagnostic Radiology: Report Reviewed by me
Labs: Labs Reviewed by me
--- NOTE | 2024-08-28 08:30 | PTCARENOTE ---
Assumed care of patient. Walking rounds completed with previous RN. Pt assessed while he was lying in bed. Pt alert and oriented x4. Pt denies pain, shortness of breath, and nausea. CHANG with equal strength throughout. SR with 1st degree AVB with
rates in the 70s. BP 125/72. Bilateral radial and DP pulses palpable. +1 edema to b/l ankles. POX 97% on RA. Lungs clear throughout. No cough noted. Abdomen soft, nontender. +BS +gas. Pt voiding small amounts of karla urine in the urinal. Right IJ
cordis intact with temporary transvenous pacer set to back up 60/10/2. No pacing spikes noted. Right AC 18g PIV and Right wrist 20g PIV intact. Right temporal scalp incision approximated with alondra. Left temporal scalp incision approximated. Right
knee abrasion with foam intact. Left elbow abrasion with foam intact. See MAR for medication administration. See worklist for complete nursing assessment. Plan of care reviewed and patient in agreement.
[2024-08-28 09:27] LABS: Glycohemoglobin (HgbA1c) 6.2 % (4.0-5.6)
--- NOTE | 2024-08-28 09:58 | W.PN.CD ---
Today's Communication / Plan
-
Consult dictated
Echo today
Permanent pacemaker tomorrow
Impression / Plan
-
79 yo with HTN, eso cancer (chemo/XRT/follows with [facility]) presents with recurrent syncope over last one month
Syncope from paroxysmal complete heart block
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
- Check echo
- PPM tomorrow
HTN
- Reasonable to hold atenolol
Coronary calcification noted on CT
- Later can consider ASA/statin
Hx of Eso cancer, 2020
Subjective:
Reviewed plans with patient
Physical Exam
Vital Signs/Labs
Vital Signs
Temp Pulse Resp BP Pulse Ox
98.4 F 77 22 132/83 97
08/28/24 08:00 08/28/24 09:30 08/28/24 09:30 08/28/24 09:00 08/28/24 09:30
08/27/24 08/28/24 08/29/24
06:59 06:59 06:59
Actual Weight 66.6 kg
08/28/24 04:58
08/28/24 04:58
Magnesium 2.0 mg/dl (1.6-2.3) 08/28/24 04:58
Triglycerides 104 mg/dl (10-149) 08/28/24 04:58
LDL Cholesterol, Calc 93 mg/dl 08/28/24 04:58
VLDL Cholesterol, Calc 20 mg/dl (0-30) 08/28/24 04:58
HDL Cholesterol 44 mg/dl 08/28/24 04:58
LAB Results
08/27/24 08/27/24 08/28/24
19:39 23:45 04:58
Troponin I 0.028 0.059 H* D 0.098 H* D
Data Reviewed
-
Date of Service: August 28, 2024
--- NOTE | 2024-08-28 11:56 | PTCARENOTE ---
Pt reassessed. Remains in SR with 1st degree AVB with rates in the 90s. Occasional v-paced spike noted. BP stable 142/82. RA POX 98%. Right IJ cordis and v-wire intact. Pt sitting up in the chair with at bedside. No acute changes from previous
assessment.
--- NOTE | 2024-08-28 12:11 | PTCARENOTE ---
Tele to be ringing 'asystole'. Pacer spikes without QRS noted. Pt states he feels lightheaded. Regained rhythm on his own. Assisted back to bed. TT to Dr. Adams, access consultant clinical nurse manager, to come to bedside. Dr. Adams at bedside. Temp pacer capturing at
this time, however Dr. Adams stated he is going to speak with EP.
[2024-08-28 12:34] LABS: Troponin I 0.087 ng/ml
--- NOTE | 2024-08-28 13:00 | W.PN.UPDATE ---
Update Note
Progress Note Update
Called to bedside. Temp pacer was intermittently not capturing--patient was symptomatic with dizziness. This has resolved. But now, intermittently pacing in atrium. Discussed with EP and patient. Will proceed to PPM today.
--- NOTE | 2024-08-28 13:27 | PTCARENOTE ---
Pt bathed with CHG wipes and new gown applied. Left AC 20g PIV placed. Consent obtained by Dr. Arce.
--- NOTE | 2024-08-28 13:37 | W.PN.UPDATE ---
Update Note
Progress Note Update
Briefly, patient is a pleasant 79-year-old male with a past medical history significant for hypertension, coronary calcium on CT scan, history esophageal cancer with treatment in 2020 who presents to [facility] in the setting of recurrent
syncope with paroxysmal complete heart block. Overnight, patient underwent TVP placement. However, patient was noted to have failure to capture and symptomatic bradycardia. Due to unstable nature and inconsistent capture from TVP, it is
recommended that patient undergo implantation of dual-chamber pacemaker. In discussion with patient and his , we discussed pacemaker indications and device implant in detail. For implant there is an approximate 1:1000 risk of [place]/stroke/
and a 1% risk of pneumothorax/tamponade/infection/bleeding. We also discussed post procedure implant restrictions including positions to avoid with implant arm for first six weeks after implant as well as driving restrictions. I took time to answer
all questions. Patient and verbalized understanding and agreed with this plan. Patient undergo implant of pacemaker. Recommended evaluation by anesthesia services of patient due to recent ingestion of lunch roughly 2 hours ago and assistance
in care of this patient.
--- NOTE | 2024-08-28 13:54 | PTCARENOTE ---
pt transported to EP lab with 2 RNs.
--- NOTE | 2024-08-28 14:39 | CM ---
Chart reviewed. Patient is independent of ADLS, lives with his in a [address], 0 SHAYLA, 0 DME. Plan is for the patient to return home. CM to follow
--- NOTE | 2024-08-28 16:50 | PTCARENOTE ---
Pt received from EP lab. Per EP nurse, pt never admitted to their monitor. Pt transported on x3 monitor and name in monitor. Pt A&Ox4. Denies pain, shortness of breath, and nausea. CHANG with equal strength throughout. V-paced on tele with rates in
the 100s via new PPM set to DDDR 60-130. BP stable 115/87. Heart tones audible. Bilateral radial and DP pulses palpable. POX 96% on RA. Lungs clear throughout. Occasional moist nonproductive cough. Abdomen soft, nontender. +BS. Pt voided 100ml karla
urine in the urinal. Right wrist PIV, Right AC PIV, and Left AC PIV intact. Right IJ cordis and temp pacer d/c in EP lab. Left upper chest wall PPM site covered with Antibacterial dressing, and pressure dressing, CDI. Pt instructed on importance of
wearing sling and not moving his elbow above his shoulder. Pt in agreement with plan of care. Resting in bed comfortably.
--- NOTE | 2024-08-28 17:11 | ITS.CL.PACE ---
[employer] [facility] - Pacemaker Implant
Pacemaker Implant
Procedure Report:
Primary Care Doctor: Taco Jacobo MD
Primary Manager Child: Pradip Díaz MD
Procedure Date: 08/28/2024
Name of procedure:
1. Placement of a dual-chamber pacemaker with left bundle area pacing lead for conduction system pacing
2. Subclavian venography
History:
1. Patient is a pleasant 79-year-old male with a past medical history significant for hypertension, esophageal cancer who presented with recurrent syncope demonstrating paroxysmal complete heart block with prolonged symptomatic pauses. A TVP was
placed overnight during admission.
2. Please refer to H&P for complete history.
Indication:
Symptomatic complete heart block
Syncope associated with complete heart block
Methods:
After informed consent was obtained, the patient was brought to the EP laboratory in a postabsorptive, nonsedated state. Peripheral IV access was established. Prophylactic antibiotics were administered prior to incision. Continuous ECG, blood
pressure, and pulse oximetry were initiated. Cardioversion patch electrodes were placed on the patient's chest and back. A grounding patch was applied to the skin. Sedation was administered by anesthesia services.
In order to define the extrathoracic portion of the subclavian vein and exclude significant venous obstruction or anomalous anatomy, subclavian venography was performed prior to the procedure. Using the patient's left peripheral IV, contrast was
injected and images were recorded. The left subclavian vein and SVC were found to be widely patent.
The left chest was prepared and draped in a sterile fashion. A time-out was performed. Local anesthesia was injected in the subcutaneous tissue in the infraclavicular area. An incision was made medial to the deltopectoral groove. The subcutaneous
tissue was dissected the level of the prepectoral fascia. A subcutaneous pocket was created. Under fluoroscopic guidance and with the assistance of the images from the venogram, 2 separate venipunctures were made using micropuncture and modified
Seldinger technique. These were performed in the extrathoracic portion of the subclavian vein. Guidewires were passed and two peel-away sheaths were placed, and used to advance leads into the circulation.
Fluoroscopy was used to determine likely anatomic site for left bundle branch pacing. The Medtronic C315 sheath was used to deliver the Medtronic 3830 Selectsecure pacing lead with the helix exposed just exposed from the sheath tip during continuous
monitoring when pacemapping the septum during gentle clockwise rotation to obtain a paced QRS morphology of a W pattern in lead V1. Once the suspected optimal site was identified, lead deployment was performed with several rapid rotations as paced
QRS morphology was intermittently monitored until a paced QRS complex in lead V1 demonstrated development of an R wave (qR or rSR). Unipolar pacing impedance dropped by approximately 100 ohms suggesting it had reached the left ventricular
subendocardial. Stable VEgm injury current is present throughout lead position and at end of case. Final unipolar pacing impedance is 1200 Ohms. Unipolar pacing threshold is stable at 0.75 V @ 0.4 ms. The patient had pre-existing narrow QRS. Final
conduction system paced QRS complex duration is 93 ms, LVAT is 58 ms, and peak V5 -> peak V1 timing is 46 ms. The C315 sheath was slit under fluoroscopy ensuring lead position and stability.
Next, the right atrial lead was positioned in the right atrial appendage. Adequate sensing and pacing parameters were found, and no diaphragmatic stimulation was seen with high-output pacing. Both sheaths were split, and the leads were secured to
the fascia with Ethibond ties. During initial tiedown of right atrial lead, there was acute dislodgment. Lead was repositioned with adequate sensing, pacing threshold without diaphragmatic stimulation. There was evidence of stable current of
injury with implantation in the right atrial appendage. Following tiedown, please were verified to remain in stable position under fluoroscopy. Right IJ TVP was carefully withdrawn under fluoroscopic guidance. RA and RV leads remained in position
with stable sensing and pacing values.
The pocket was flushed with antibiotic solution and hemostasis was assured. The generator was connected to the leads and placed inside the pocket. The device was sutured to the fascia. The wound was closed with 3 running layers of absorbable
suture, and steri-strips were applied. Dressing applied over steri-strips in standard fashion. Right IJ sheath was removed at completion of case, pressure was held hemostasis assured and dressed in standard fashion.
Following the procedure, the patient was taken to the recovery area in stable condition. A chest x-ray to be obtained post procedure as routine.
Lead parameters and device programming:
- RA Lead (Medtronic, Model 5076, #[id number]): Sensing 1.5 mV, Pacing threshold 1.25 V at 0.4 ms, Imp 494 ohm
- RV Lead (Medtronic, Model 3830, #[id number]): Sensing dependent, Pacing threshold 0.5 V at 0.4 ms, Imp 798 ohm
- Device: Medtronic, Model W1 DR 01 pacemaker (#[id number]), programmed DDDR, mode switch on, lower rate 60, upper tracking rate 130 ppm
Conclusions:
1. Successful placement of a dual-chamber pacemaker with conduction system pacing (LBBAP)
2. Subclavian venography
3. TVP removal under fluoroscopic guidance
Recommendations:
1. Return to patient room
2. chest x-ray.; [facility] in a.m.
3. IV antibiotics while the patient is admitted.
4. OK to resume home medications as indicated
5. Pressure dressing to be removed in AM, aquacell to remain until wound check
6. Follow-up will be arranged in the office in 7-10 days post-discharge
Edmund Cummins DO
Clinical Cardiac Linen Attendant
cc: Taco Jacobo MD; Pradip Díaz MD
[2024-08-28] MEDS: LOVENOX 40 MG SC (17:32)
[2024-08-28] MEDS: ANCEF 5 IV (20:14)
--- NOTE | 2024-08-28 21:00 | PTCARENOTE ---
Assumed care of pt from dayshift RN. Walking rounds completed. Pt AAOx3. Pt is 100% V-paced on the monitor. PPM in place and set to DDDR 60-130. HR 100s. BP stable. Bilateral radial pulses palpable. Bilateral DP pulses weak to palpation. +1 LE edema
present. Pt on RA. POX 95%. Lung sounds clear. Deep breathing encouraged. Abdomen soft/nontender. +BS. +Gas. Pt voiding yellow urine in urinal. Left upper chest PPM site w/ antibacterial dressing and pressure dressing C/D/I. Left arm immobilizer
intact. Right temporal scalp laceration intact and approximated w/ alondra. Left temporal scalp laceration approximated. Right knee and left elbow abrasions covered w/ silicone boarder foams intact. Right PIVx2 and Left PIV C/D/I and flush. Pt
resting in bed at this time. No c/o pain. See worklist for full nursing assessment and interventions. Call le within reach.
[2024-08-29 00:14] VITALS: BP 108/78
--- NOTE | 2024-08-29 00:16 | PTCARENOTE ---
No acute change in assessment. Pt 100% V-paced on the tele monitor. HR 90s-100s. BP 108/78. Pt on RA. POX 95%. Left upper chest PPM site and left arm immobilizer intact. Pt repositioned in bed. No c/o of pain at this time. Call le within reach.
[2024-08-29 03:41] VITALS: BP 130/81
[2024-08-29 04:03] LABS: Hematocrit 36.3 % (39.0-52.0); Hemoglobin 12.6 g/dL (13.0-18.0); Mean Corp Hgb Conc. 34.7 g/dL (33.0-37.0); Mean Corpuscular Hgb 31.5 pg (27.0-31.0); Mean Corpuscular Volume 90.8 fL (80.0-94.0); Mean Platelet Volume 9.9 fL (7.4-10.4); Platelet Count 197 10^3/uL (130-400); Red Cell Dist. Width 12.7 % (11.5-14.5); White Blood Cell Count 13.4 10^3/uL (4.8-10.8)
[2024-08-29 04:21] VITALS: BMI 26.4
[2024-08-29] MEDS: ANCEF 5 IV (04:22)
[2024-08-29 04:45] LABS: Blood Urea Nitrogen 20 mg/dl (9-20); Calcium 8.6 mg/dl (8.4-10.2); Carbon Dioxide 21 mmol/L (22-30); Chloride 106 mmol/L (98-107); Estimated Creatinine Clearance 58 ml/min; Glucose 192 mg/dl (70-99); Potassium 5.2 mmol/L (3.5-5.1); Sodium 140 mmol/L (135-145); eGFR > 60.00
--- NOTE | 2024-08-29 04:49 | PTCARENOTE ---
Pt reassessed. Pt remains V-paced on the tele monitor. HR 90s. BP 130/81. Pt on RA. POX 96%. Left upper chest PPM site C/D/I. Left arm immobilizer intact. Pt voiding in the urinal. +BM. Pt repositioned in bed. Labs drawn and sent. EKG obtained. Bed
weight obtained. No c/o pain at this time. Call le within reach.
[2024-08-29 07:39] VITALS: BP 143/89
--- NOTE | 2024-08-29 07:41 | W.PN.ANS.POP ---
Anesthesia Post Operative
- Anesthesia Post Op Note
Vital Signs Stable-See Nursing Note: Yes
Airway Patent: Yes
Adequate Pain Control: Yes
Change in Mental Status: No
Current Postoperative Nausea & Vomiting: No
Anesthesia Complications: No
General Anesthetic Recall: No
Unplanned Admission: No
Post Op Hydration Adequate: Yes
--- NOTE | 2024-08-29 07:42 | W.PN.HOSP.TC ---
Today's Communication/Plan
-
F/U further cardiology recs
PT/OT
Assessment / Plan
Assessment / Plan
79-year-old with past medical history of hypertension hyperlipidemia and esophageal hernia s/p surgery presenting to the emergency department recurrent syncopal episode.
While in the ED he was noted to have approximately 32nd pause s/p urgent temporary pacer placement.
1. Symptomatic bradycardia with intermittent complete block and ventricular excitation.
- s/p temp ppm with placement PPM afternoon 08/28
- CXR this morning
- appreciate cardiology
- resume SR. CONSULTANT Atenolol if OK'd by cardiology this AM
- IV abx while in-house
- PT/OT
2. HTN
DVT PPX - lovenox sq
Code Status - Full code
Anticipated Discharge: Within 24 hours
Subjective/Interval History
-
Date of Service: August 29, 2024
feeling well
no chest pain or shortness of breath
Objective Data
-
Labs:
Laboratory Results
08/29/24
03:47
WBC 13.4 H
Hgb 12.6 L
Hct 36.3 L
Plt Count 197
Sodium 140
Potassium 5.2 H
Chloride 106
Carbon Dioxide 21 L
BUN 20
Creatinine 0.8
Glucose 192 H
Calcium 8.6
Vital Signs:
Vital Signs
Temp Pulse Resp BP Pulse Ox
98.5 F 91 20 130/81 95
08/29/24 03:41 08/29/24 06:00 08/29/24 06:00 08/29/24 03:41 08/29/24 03:41
I&O
08/28/24 08/29/24 08/30/24
06:59 06:59 06:59
Intake Total 90 / 90 290 / 290
Output Total 250 / 250 875 / 875
Balance -160 / -160 -585 / -585
Review of Systems
-
History Source: Patient
All other systems: Reviewed and negative
Physical Exam
-
General: No Apparent Distress
HEENT: PERRLA
Respiratory: Clear to Auscultation and Other (left chest PPM wrapped, arm in sling ); Negative Wheezes
Cardiac: Regular Rhythm and S1/S2
GI: Soft and Nontender
Musculoskeletal: No Edema
Skin: Warm and Dry; Negative Rash
Neuro: AO x 3
Psych: Calm
Data Reviewed
-
Diagnostic Radiology: Report Reviewed by me
Labs: Labs Reviewed by me
--- NOTE | 2024-08-29 07:51 | PTCARENOTE ---
Assumed care of patient from morning news anchor RN. AAO x 3 . hard of hearing with hearing aids in. V paced on monitor. Lt chest wall PPM site c,d,i. pressure dressing intact, Immobilizer on . Lungs clear. Abdomen soft and non tender. Voiding in
urinal w/o issue. Pulses palpable. Pt c/o RT Achilles pain, believes it is related to his prior fall. Trace edema appreciated at this site. Ambulated with rolling walker and assist x 1 to chair. Gait unsteady, pt states d/t Rt foot pain. Call
rey w/in reach instructed to ring for assistance.
--- NOTE | 2024-08-29 09:47 | W.PN.CD ---
Addendum entered and electronically signed by Vasyl Quinonez MD (Ellie) 08/29/24 10:57:
Troponin elevation is due to nonischemic myocardial injury in the setting of syncope and heart block.
Original Note:
Today's Communication / Plan
-
Remove pressure dressing
Ok to go pending PT eval
Impression / Plan
-
79 yo with HTN, eso cancer (chemo/XRT/follows with [facility]) presents with recurrent syncope over last one month now s/p PPM.
Syncope from paroxysmal complete heart block, s/p PPM
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
- S/p PPM yesterday
- Ok to remove pressure dressing today
- Will follow-up outpatient in 7-10 days
HTN
- Resume home atenolol
Coronary calcification noted on CT
- Later can consider ASA/statin outpatient
Hx of Eso cancer, 2020
Subjective:
Feels well, wants to get some of his bandages off. No alarms on tele
Physical Exam
Vital Signs/Labs
Vital Signs
Temp Pulse Resp BP Pulse Ox
98.8 F 103 20 143/89 95
08/29/24 07:58 08/29/24 08:00 08/29/24 07:58 08/29/24 07:39 08/29/24 08:06
08/28/24 08/29/24 08/30/24
06:59 06:59 06:59
Actual Weight 66.6 kg 65.3 kg
08/29/24 03:47
08/29/24 03:47
Magnesium 2.0 mg/dl (1.6-2.3) 08/28/24 04:58
Triglycerides 104 mg/dl (10-149) 08/28/24 04:58
LDL Cholesterol, Calc 93 mg/dl 08/28/24 04:58
VLDL Cholesterol, Calc 20 mg/dl (0-30) 08/28/24 04:58
HDL Cholesterol 44 mg/dl 08/28/24 04:58
LAB Results
08/27/24 08/27/24 08/28/24
19:39 23:45 04:58
Troponin I 0.028 0.059 H* D 0.098 H* D
08/28/24
11:45
Troponin I 0.087 H*
Physical Exam
Constitutional: No acute distress and Comfortable
Cardiovascular: Rhythm & rate is regular, JVD pressure is normal, Pedal edema present, S1S2 is normal, Murmur/rub/gallop absent and Other (Binder and bandages in place)
Respiratory: Respiratory effort normal and Lungs clear to auscul.
Data Reviewed
-
Date of Service: August 29, 2024
Medical Decision Making: Reviewed Test Results, Independent Historian Assessment, Test Interpretation and Review of Case with other Provider
EKG: Tracing Personally Visualized and interpreted
Echo: Report Reviewed by me
X-Ray/CT/US/MRI/NUC/PET: Image Personally Visualized and interpreted
Labs: Labs Reviewed by me
Total Time Spent with Patient (in minutes): 35
--- NOTE | 2024-08-29 10:50 | PN.CDI ---
CDI
- -
CDI:
Physician Documentation Request
Admit Date: 08/27/24 21:49
Dear Cardiology,
Please review the following and provide your response in the progress notes.
Clinical Indicators:
- 08/29 Cardiology 'Syncope from paroxysmal complete heart block'
- 08/27 clinical laboratory aides teacher placed temporary venous pacemaker
Laboratory Tests
08/27/24 08/28/24 08/28/24
23:45 04:58 11:45
Troponin I 0.059 H* D 0.098 H* D 0.087 H*
Please clarify the following regarding the documented elevated troponins:
Non-ischemic myocardial injury
Other (please specify)
Use of terms such as suspected, likely, concern for, or probable (associated with a specific diagnosis that is being evaluated, monitored, or treated as if it exists) are acceptable and can be coded in the inpatient setting, when documented at the
time of discharge.
Thank you,
Ann Galeas RN
CDI Specialist
Please use your independent medical judgment in providing your response.
[2024-08-29 11:02] VITALS: BP 144/99
[2024-08-29 11:15] VITALS: BP 144/99; PULSE 108; O2SAT 96
--- NOTE | 2024-08-29 11:36 | W.DS.TRANS ---
DC Summary - [employer]
-
Discharge Instructions:
Discharge Diagnosis/Procedures Pacemaker implant
Diet Regular
Activity As tolerated
Driving Restrictions No driving for 1 week
Bathing Restrictions OK to Shower
Other Services PT,VN,OT
Instructions:
Stand-Alone Forms: DC Inst - Implanted Device
Changes to Home Medications: No
Discharge Medications:
DC Medications w/original date entered in [employer]
atenolol 50 mg tablet 50 mg PO DAILY Blood Pressure 03/14/24
Nature Vitamin 1 tab PO QPM Supplement 08/27/24
ascorbic acid (vitamin C) 500 mg tablet (Vitamin C) 500 mg PO QPM Supplement 08/27/24
cyanocobalamin (vitamin B-12) 1,000 mcg tablet 1,000 mcg PO QPM Supplement 08/27/24
vitamin E 268 mg (400 unit) capsule 268 mg PO QPM Supplement 08/27/24
Home Medication Changes
Pending Results: No
--- NOTE | 2024-08-29 11:46 | PTCARENOTE ---
Sitting up in chair with family . Denies complaint. Ambulated with PT. VSS Assessment unchanged from prior
--- NOTE | 2024-08-29 12:10 | CM ---
spoke to pt and family in room, they are agreeable to dhvn with PT/OT at home. referral faxed.
[2024-08-29 12:18] VITALS: BP 144/99; PULSE 108; O2SAT 96
--- NOTE | 2024-08-29 12:41 | PTCARENOTE ---
Discharge order received. Pt stable, VSS prior to discharge. All PIVs d/c. All instructions reviewed using teach back method. Pt, , and daughter confirm understanding. Pt discharged.
[2024-08-29 13:35] LABS: Lyme Antibody Screen, EIA Negative (Negative)
--- NOTE | 2024-08-30 07:27 | W.DCSUMMARY ---
Discharge Summary
Discharge Data
Date of Admission: 08/27/24
Date of Discharge: 08/30/24
-
Pending Results: No
Hospital Course
Discharging Physician : Dr. Isabel Lou
Disposition : Home
Primary care physician : Dr. Taco Jacobo
Principal Discharge diagnosis : Syncope secondary to complete heart block status post PPM on 08/28/24
Hospital Course :
Mr. Kp Mcarthur is a 79 yo man with past medical history of hypertension, hyperlipidemia, esophageal cancer (dx 2020 s/p chemo/XRT), presenting to the emergency department recurrent syncopal episode.
While in the ED he was noted to have approximately 32nd pause s/p urgent temporary pacer placement. He was admitted to the CVICU.
Patient's temp wire was noted to have failure to capture with resulting symptomatic bradycardia and he was taken for PPM placement on 10/28/24. Patient tolerated the procedure well. Per cardiology, OK to resume his Atenolol.
He is discharged home with close follow up.
Time spent on discharge was 31 minutes.
Important imaging findings :
Cervical Spine CT 08/27/24
IMPRESSION: No evidence of acute fracture or dislocation.
HEAD CT 08/27/24
IMPRESSION:
No evidence of acute intracranial abnormality.
CXR 08/28/24
IMPRESSION:
No acute cardiopulmonary process.
Procedure findings :
Discharge Plan
-
Patient Disposition: Home with Home Care
Discharge Diagnosis/Procedures: Pacemaker implant
Diet: Regular
Activity: As tolerated
Driving Restrictions: No driving for 1 week
Bathing Restrictions: OK to Shower
Other Services: VN, PT and OT
Wound Care: [place] should be removed in 5-8 days (F/U with PCP)
Stand Alone Forms: DC Inst - Implanted Device
Referrals:
[facility] [Outside]
Taco Jacobo MD [Family Provider] - in less than 1 week
Pradip Díaz MD [Active] - 09/06/24 2:40 pm (Incision check appointment)
Prescriptions:
Continued
atenolol 50 mg Tablet
50 mg PO DAILY
cyanocobalamin (vitamin B-12) 1,000 mcg Tablet
1,000 mcg PO QPM
ascorbic acid (vitamin C) [Vitamin C] 500 mg Tablet
500 mg PO QPM
vitamin E 268 mg (400 unit) Capsule
268 mg PO QPM
Nature Vitamin
1 tab PO QPM
Discharge Orders:
Discharge Patient (As Directed); Ordered 08/29/24
Ordered By: Isabel Lou
Care Plan Goals
Care Plan Goals:
Problem: Readiness for enhanced knowledge related to diagnosis and treatment plan
Goal: Understand your diagnosis and treatment plan needs, including medications if applicable.
Instructions: Know your diagnosis, underlying causes and treatment plan options, including medications if applicable. Consult with your health care team to learn about your diagnosis and treatment plan, including medications if applicable.
Discharge Date and Time
Discharge Date/Time: 08/29/24 12:58
Print Language: [id number]
== END 2024-08-29 12:58 | disposition home or self-care (01) | DRG 243 ==
LOC: CVICU 21:49
PROVIDERS: Internal Medicine Cardiovascular Disease; Nurse Practitioner; Student in an Organized Health Care Education/Training Program; ADMITTING PHYSICIAN Internal Medicine; ATTENDING PHYSICIAN Student in an Organized Health Care Education/Training Program; CONSULT PHYSICIAN Internal Medicine Cardiovascular Disease; EMERGENCY PHYSICIAN Emergency Medicine; FAMILY PHYSICIAN Family Medicine
PROC: 5A1223Z Performance of Cardiac Pacing, Continuous (ICD-10-PCS; 2024-08-27)
PROC: 02H63JZ Insertion of Pacemaker Lead into Right Atrium, Percutaneous Approach (ICD-10-PCS; 2024-08-28)
PROC: 02HK3JZ Insertion of Pacemaker Lead into Right Ventricle, Percutaneous Approach (ICD-10-PCS; 2024-08-28)
PROC: 0JH606Z Insertion of Pacemaker, Dual Chamber into Chest Subcutaneous Tissue and Fascia, Open Approach (ICD-10-PCS; 2024-08-28)
DX: I44.2 Atrioventricular block, complete (principal); I5A Non-ischemic myocardial injury (non-traumatic); I10 Essential (primary) hypertension; R00.1 Bradycardia, unspecified; I25.10 Atherosclerotic heart disease of native coronary artery without angina pectoris; E78.00 Pure hypercholesterolemia, unspecified; Z79.899 Other long term (current) drug therapy; Z85.01 Personal history of malignant neoplasm of esophagus; Z87.891 Personal history of nicotine dependence; Z92.21 Personal history of antineoplastic chemotherapy; Z92.3 Personal history of irradiation
CPT/HCPCS: 33208; 33210; 70450; 71045; 72125; 80048; 80053; 80061; 83036; 83735; 84443; 84484; 85025; 85027; 86618; 93005; 93306; 96374; 97116; 97162; 97166; 99291; C1769; C1785; C1887; C1892; C1894; C1898; Q9967

== ENCOUNTER → 2024-09-06 15:44 | Outpatient (REF) | payer MEDICARE, OTHER, SELFPAY | LOC: RAD 15:44 | PROVIDERS: ATTENDING PHYSICIAN Physician Assistant; FAMILY PHYSICIAN Family Medicine | DX: M25.571 Pain in right ankle and joints of right foot (principal); M79.671 Pain in right foot | CPT/HCPCS: 73610; 73630 ==

== ENCOUNTER 2024-09-07 08:05 | Emergency (ER) | payer MEDICARE, OTHER, SELFPAY ==
[2024-09-07 08:07] VITALS: BP 167/95
--- NOTE | 2024-09-07 08:25 | ED.MUSCINJ ---
HPI-Injury
General
Chief Complaint: Musculo-Skeletal Complaint
Source: patient and family (son at bedside)
Exam Limitations: none
Time Seen by Provider: 09/07/24 08:14
Nursing documentation reviewed up to this point in time: agreed with
History of Present Illness-Injury
Initial Injury comments:
79 yo male hx HTN, HLD had a syncopal episode requiring a pacemaker last week, he has been having swelling, bruising and pain in the RLE since. He has been walking on it 'it doesn't hurt too bad.' Saw PCP yesterday who ordered out pt xray of foot
and ankle and informed he has a fracture and to come to ED.
Past History
Past History
ED Past Medical History: HTN and Hypercholesterolemia
ED Past Surgical History: Other (Hernia repair)
Social History
Tobacco: Former smoker
Alcohol: None
Personal:
Living: with family
Family History
Family History: Unable to obtain
Review of Systems
Review of Systems
Allergies reviewed?: Yes
All Other Systems: ROS reviewed and negative except as documented in HPI and ROS
Musculoskeletal: Reports other (swelling bruising RLE)
Phy Exam
Physical Exam
Physical Exam:
GENERAL: No acute distress. A&Ox3.
CONSTITUTIONAL: Afebrile.
RESPIRATORY: Regular respirations, nonlabored, lungs clear.
CARDIOVASCULAR: Regular rate and rhythm, no murmurs, no rubs.
GI: Soft, nontender
MUSCULOSKELETAL: Right lower extremity with swelling and ecchymosis from just below the knee to the foot. Moves with ease. Well perfused.
SKIN: Warm, dry, pink
PSYCH: Normal mood and affect. Well kept, interactive and appropriate
NEUROLOGIC: Awake, alert and oriented. No focal neurological deficits
Injury Course
Orders/Labs/Results
Orders:
Orders
09/07/24 08:24
Tib/Fib, Right 2 View [CR Leg Tibia/fibula Right 2 Vw] Urgent
Comment:
Reason For Exam: fall
09/07/24 09:16
Long Leg Posterior Right-Treat ONCE
[place] Right-Treatment ONCE
Procedures
Splint Check
Splint checked by provider?: Yes
Circulation/Movement/Sensation post splint application: brisk cap refill and full sensation
MDM/Problems Addressed
MDM/Problems Addressed:
79 yo male hx HTN, HLD had a syncopal episode requiring a pacemaker last week, he has been having swelling, bruising and pain in the RLE since. He has been walking on it 'it doesn't hurt too bad.' Saw PCP yesterday who ordered out pt xray of foot
and ankle and informed he has a fracture and to come to ED.
Out pt xray reveals mildly displaced distal fibula fracture
Pt has swelling, ecchymosis from knee to foot. Will check tib fib xray also to r/o prox fibula fx
Xray right tib/fib: Neg prox fibula fx. distal fibula fx noted.
Posterior and U splint applied
Referred to orthopedic
*Critical Care Note
Total Time (30-74mins, 75-104mins- exclusive of procedures): Not Applicable
ED Attending Note
-
Portions of this chart may have been created with voice recognition software.� Occasional wrong word or��sound alike� substitutions may have occurred due to the inherent limitations of voice recognition software.
Discharge Plan
Departure
Patient Disposition: Home (Routine Discharge)
Date of Disposition: 09/07/24
Time of Disposition: 09:20
Patient with high blood pressure during this ER visit?: No
Condition: Good
Discharge Problem:
Closed fracture of distal end of right fibula
Instructions: Ankle Fracture ED
Prescriptions:
No Action
atenolol 50 mg Tablet
50 mg PO DAILY
cyanocobalamin (vitamin B-12) 1,000 mcg Tablet
1,000 mcg PO QPM
ascorbic acid (vitamin C) [Vitamin C] 500 mg Tablet
500 mg PO QPM
vitamin E 268 mg (400 unit) Capsule
268 mg PO QPM
Nature Vitamin
1 tab PO QPM
Referrals:
Taco Jacobo MD [Family Provider] -
Nik Childress MD [Active] - Next open appointment
Activity Restrictions/Additional Instructions:
As we discussed, keep the splint on until further instructed by the orthopedic doctor.
Call the office first thing Monday morning and make next available appointment.
You may weight-bear for very short distances only until further instructed
Interventions
Interventions:
*Risk Screen - Suicide Last Done: 09/07/24 08:07
*General Assessment Last Done: 09/07/24 08:07
*Neglect/Abuse Screening Last Done: 09/07/24 08:07
ED- Fall Risk Assessment Last Done: 09/07/24 10:52
*ED COVID-19 Vaccine History Last Done: 09/07/24 10:46
*Nursing Disposition Last Done: 09/07/24 10:52
ED-Musculoskeletal Assessment Last Done: 09/07/24 10:46
Discharge Date and Time
Discharge Date/Time: 09/07/24 10:56
Print Language: [place]
[2024-09-07 10:46] VITALS: BP 145/93
== END 2024-09-07 10:56 | disposition home or self-care (01) ==
LOC: EMR 08:05
PROVIDERS: EMERGENCY PHYSICIAN Student in an Organized Health Care Education/Training Program; FAMILY PHYSICIAN Family Medicine
DX: S82.831A Other fracture of upper and lower end of right fibula, initial encounter for closed fracture (principal); W19.XXXA Unspecified fall, initial encounter; I10 Essential (primary) hypertension; E78.00 Pure hypercholesterolemia, unspecified; Z87.891 Personal history of nicotine dependence; Z95.0 Presence of cardiac pacemaker
CPT/HCPCS: 99283; 29515; 73590

== ENCOUNTER → 2025-02-01 06:47 | Outpatient (REF) | payer MEDICARE, OTHER, SELFPAY ==
[2025-02-01 08:19] LABS: % Eosinophils 5.5 % (0-6); % Immature Granulocytes 0.3 % (0-0.5); % Lymphocytes 15.4 % (20.5-51.1); % Monocytes 10.9 % (1.7-9.3); % Neutrophils 66.9 % (42.2-75.2); Absolute Basophils 0.1 10^3/uL (0-0.2); Absolute Eosinophils 0.4 10^3/uL (0-0.7); Absolute Lymphocytes 1.1 10^3/uL (1.2-3.4); Absolute Monocytes 0.8 10^3/uL (0.1-0.6); Absolute Neutrophils 4.6 10^3/uL (1.4-6.5); Hematocrit 39.1 % (39.0-52.0); Mean Corp Hgb Conc. 33.2 g/dL (33.0-37.0); Mean Corpuscular Hgb 30.9 pg (27.0-31.0); Mean Corpuscular Volume 92.9 fL (80.0-94.0); Mean Platelet Volume 10.2 fL (7.4-10.4); Nucleated Red Blood Cells % 0 % (-); Platelet Count 221 10^3/uL (130-400); Red Blood Cell Count 4.21 10^6/uL (4.70-6.10); Red Cell Dist. Width 12.8 % (11.5-14.5); White Blood Cell Count 6.9 10^3/uL (4.8-10.8)
[2025-02-01 09:09] LABS: ALT (SGPT) 13 U/L (0-50); AST (SGOT) 19 U/L (17-59); Albumin 4.3 g/dl (3.5-5.0); Alkaline Phosphatase 90 U/L (38-126); Blood Urea Nitrogen 16 mg/dl (9-20); Calcium 9.5 mg/dl (8.4-10.2); Carbon Dioxide 25 mmol/L (22-30); Chloride 106 mmol/L (98-107); Glucose 124 mg/dl (70-99); Potassium 4.6 mmol/L (3.5-5.1); Sodium 141 mmol/L (135-145); Total Bilirubin 0.9 mg/dl (0.2-1.3); Total Protein 7.1 g/dl (6.3-8.2); eGFR > 60.00
== END ==
LOC: REG 06:47
PROVIDERS: ATTENDING PHYSICIAN Internal Medicine Hematology & Oncology; FAMILY PHYSICIAN Family Medicine
DX: C15.5 Malignant neoplasm of lower third of esophagus (principal)
CPT/HCPCS: 36415; 80053; 85025